=== PATIENT | female | born 1990 | race Caucasian/White ===

== ENCOUNTER → 2016-09-24 | Outpatient (CLI) | payer OTHER ==
[2016-09-24 12:25] LABS: BASO % 0.2 %; BASO ABS # 0.01 K/uL (0-0.2); COMPLETE YES; HEMATOCRIT 42.5 % (37-47); IG% 0.2 %; LYMPH % 34.1 %; LYMPH ABS # 1.85 K/uL (1.2-3.4); MEAN CELL VOLUME 91.2 fL (80-100); MEAN CORPUSCULAR HEMOGLOBIN 30.3 pg (25-34); MEAN CORPUSCULAR HGB CONC 33.2 g/dl (32-36); MEAN PLATELET VOLUME 10.9 fL (7.4-10.4); MONO % 6.8 %; NEUT % 55.7 %; PLATELET COUNT 237 K/uL (130-400); RED BLOOD COUNT 4.66 M/uL (4.2-5.4); WHITE BLOOD COUNT 5.42 K/uL (4.8-10.8)
[2016-09-24 13:00] LABS: ALT/SGPT 16 U/L (12-78); AST/SGOT 13 U/L (15-37); BLOOD UREA NITROGEN 10 mg/dl (7-18); BUN/CREATININE RATIO 14.2 (10-20); CALCIUM 8.2 mg/dl (8.5-10.1); CARBON DIOXIDE 25 mmol/L (21-32); CHLORIDE 112 mmol/L (98-107); CREATININE 0.68 mg/dl (0.60-1.20); GLUCOSE 75 mg/dl (70-99); POTASSIUM 4.2 mmol/L (3.5-5.1); SODIUM 145 mmol/L (136-145)
[2016-09-24 13:10] LABS: ALB/GLOB RATIO 1.2 (0.9-2); ALKALINE PHOSPHATASE 80 U/L (45-117); CHOLESTEROL 122 mg/dl (0-200); CHOLESTEROL/HDL RATIO 2.4; HDL CHOLESTEROL 51 mg/dl; LDL CHOLESTEROL CALCULATED 63 mg/dl; TRIGLYCERIDES 39 mg/dl (0-150); VERY LOW DENSITY LIPOPROT CALC 8 mg/dl
== END | disposition home or self-care (01) ==
LOC: C.LABPBG 09:03
PROVIDERS: ATTEND Neuromusculoskeletal Medicine & OMM
DX: Z00.00 Encounter for general adult medical examination without abnormal findings (principal)

== ENCOUNTER → 2017-08-05 | Outpatient (CLI) | payer OTHER | END | disposition home or self-care (01) | LOC: C.LABSPEC 17:42 | PROVIDERS: ATTEND Family Medicine | DX: Z01.419 Encounter for gynecological examination (general) (routine) without abnormal findings (principal); Z30.9 Encounter for contraceptive management, unspecified ==

== ENCOUNTER → 2017-08-05 | Outpatient (CLI) | payer OTHER | END | disposition home or self-care (01) | LOC: C.PAPS 18:17 | PROVIDERS: ATTEND Family Medicine | DX: Z01.419 Encounter for gynecological examination (general) (routine) without abnormal findings (principal); Z30.9 Encounter for contraceptive management, unspecified ==

== ENCOUNTER → 2017-08-06 | Outpatient (CLI) | payer OTHER | END | disposition home or self-care (01) | LOC: C.LABPBG 08:13 | PROVIDERS: ATTEND Family Medicine | DX: R30.0 Dysuria (principal) ==

== ENCOUNTER 2022-05-24 17:22 | Inpatient (IN) ==
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
[2022-05-24] MEDS ORDERED: ACETAMINOPHEN 500 MG TAB PO STA (18:06)
--- NOTE | 2022-05-24 18:55 | XRay Report ---
XR foot LT min 3V routine, XR knee LT 4V HISTORY: 31 years-old Female dorsal metatarsal acute pain of the left foot and the status post injur y COMPARISON: None TECHNIQUE: 3 views of the left foot with 4 views of the left knee FINDINGS: FOOT: Subtle acute nondisplaced fracture involves the medial base of the first metatarsal. Acute transverse fractures are noted involving the proximal metaphyseal aspects of the second, third and fourth metat arsals. Approximately 2 mm medial displacement of the third and fourth metatarsal fractures. Possible acute fractures of the second and third cuneiforms. Slight widening at the Lisfranc articulation, 3 mm. Moderate soft tissue swelling. Mild spurring of the calcaneus. KNEE: No acute fracture, dislocation or large joint effusion identified. Limited exam secondary to patient body habitus. IMPRESSION: 1. Acute fractures involving the bases of the first through fourth metatarsals with questioned fractu res of the second and third cuneiforms. 2. Slight widening of the midfoot is suspicious for an associated Lisfranc ligamentous injury. 3. No acute fracture or dislocation of the knee. ACT 112: Negative or not required by law. The above report was generated using voice recognition software. It may contain grammatical, syntax o r spelling errors. Electronically signed by: Ruel Ness M.D. 05/24/2022 6:52 PM
[2022-05-24 20:22] LABS: Basophils # (auto) 0.03 K/uL (0-0.2); Basophils % (auto) 0.4 %; Eosinophils # (auto) 0.15 K/uL (0-0.50); Eosinophils % (auto) 1.8 %; Hematocrit (blood only) 39.3 % (34.1-44.9); Immature Granulocytes # (auto) 0.04 K/uL (0.00-0.02); Immature Granulocytes % (auto) 0.5 %; Lymphocytes # (auto) 1.46 K/uL (1.2-3.4); Lymphocytes % (auto) 17.5 %; Mean Corpuscular Hgb Conc 33.1 g/dL (32.0-36.0); Mean Corpuscular Volume 90.6 fL (80.0-100.0); Mean Platelet Volume 10.1 fL (9.4-12.3); Monocytes # (auto) 0.36 K/uL (0.24-0.82); Monocytes % (auto) 4.3 %; Neutrophils % (auto) 75.5 %; Platelet Count 243 K/uL (130-400); RDW Coefficient of Variation 13.2 % (11.5-14.5); RDW Standard Deviation 43.4 fL (36.4-46.3); Red Blood Count 4.34 M/uL (3.93-5.22); White Blood Count 8.34 K/ul (4.8-10.8)
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
[2022-05-24 20:44] LABS: Albumin Globulin Ratio 1.3 (0.9-2); Albumin Level 3.8 gm/dl (3.4-5.0); BUN Creatinine Ratio 18.8 (10-20); Bilirubin,Total 0.7 mg/dl (0.2-1.0); Calcium 8.9 mg/dl (8.5-10.1); Creatinine Clr Calc Pharmacy 139.8 ml/min; Est GFR (African American) 112.3 ml/min; Est GFR (Non-African American) 96.9 ml/min; Potassium 3.4 mmol/L (3.5-5.1); Total Protein 6.8 gm/dl (6.0-8.3)
[2022-05-24] MEDS ORDERED: POTASSIUM CHLORIDE CRTAB 20 MEQ TABCR PO STA (20:47)
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
[2022-05-24] MEDS ORDERED: oxyCODONE HCL IR 5 MG TAB (IMMEDIATE RELEASE) PO PRN (22:43)
[2022-05-24] MEDS ORDERED: ONDANSETRON INJ 2 MG/ML 2 ML VIAL IV PRN (22:43)
[2022-05-24] MEDS ORDERED: RIZATRIPTAN BENZOATE 10 MG TAB PO PRN (22:43)
[2022-05-25] MEDS: oxyCODONE HCL IR 5 MG TAB (IMMEDIATE RELEASE) PO PRN ×3 (03:23→16:03)
[2022-05-25] MEDS: ACETAMINOPHEN 325 MG TAB PO PRN ×2 (07:14→22:37)
--- NOTE | 2022-05-25 07:15 | CT Scan Report ---
LEFT KNEE CT CT DOSE: 127.98 mGy.cm HISTORY: Fall anterolateral left knee pain,negative xray TECHNIQUE: Multiaxial CT images of the left knee were performed and reformatted in the sagittal and c oronal plane without the use of contrast. A dose lowering technique was utilized adhering to the irish [place]. COMPARISON: Left knee radiograph 05/24/2022. FINDINGS: No fracture or dislocation. Soft tissues are unremarkable. No knee effusion. IMPRESSION: No fracture or dislocation within the left knee. ACT 112: Negative or not required by law. Electronically signed by: Caden Harris M.D. 05/25/2022 7:13 AM
[2022-05-25 07:23] LABS: Basophils # (auto) 0.03 K/uL (0-0.2); Basophils % (auto) 0.5 %; Eosinophils # (auto) 0.15 K/uL (0-0.50); Eosinophils % (auto) 2.7 %; Hematocrit (blood only) 33.5 % (34.1-44.9); Immature Granulocytes # (auto) 0.03 K/uL (0.00-0.02); Immature Granulocytes % (auto) 0.5 %; Lymphocytes # (auto) 1.65 K/uL (1.2-3.4); Lymphocytes % (auto) 29.4 %; Mean Corpuscular Hemoglobin 29.7 pg (25.0-34.0); Mean Corpuscular Hgb Conc 32.8 g/dL (32.0-36.0); Mean Corpuscular Volume 90.5 fL (80.0-100.0); Mean Platelet Volume 10.3 fL (9.4-12.3); Monocytes # (auto) 0.42 K/uL (0.24-0.82); Monocytes % (auto) 7.5 %; Neutrophils # (auto) 3.34 K/uL (1.4-6.5); Neutrophils % (auto) 59.4 %; Platelet Count 212 K/uL (130-400); RDW Coefficient of Variation 13.2 % (11.5-14.5); RDW Standard Deviation 43.7 fL (36.4-46.3); White Blood Count 5.62 K/ul (4.8-10.8)
[2022-05-25 07:47] LABS: BUN Creatinine Ratio 18.6 (10-20); Calcium 8.4 mg/dl (8.5-10.1); Creatinine Clr Calc Pharmacy 158.9 ml/min; Est GFR (African American) 131.9 ml/min; Est GFR (Non-African American) 113.8 ml/min; Magnesium 1.9 mg/dl (1.7-2.4); Potassium 3.6 mmol/L (3.5-5.1)
[2022-05-25] MEDS: FLUTICASONE PROPIONATE NA SPR 16 GM BTL SCH (08:02)
[2022-05-25] MEDS: CETIRIZINE HCL 10 MG TABLET PO SCH (08:02)
[2022-05-25] MEDS: CITALOPRAM 40 MG TAB PO SCH (08:02)
[2022-05-25] MEDS: PANTOprazole 40 MG TAB PO SCH (08:02)
--- NOTE | 2022-05-25 08:26 | XRay Report ---
XR chest 1V portable HISTORY: pre-op COMPARISON: None. FINDINGS: The lungs are clear. Cardiac silhouette is normal in size. No pleural effusions. No pneumot horax. IMPRESSION: No acute process. ACT 112: Negative or not required by law. Electronically signed by: Caden Harris M.D. 05/25/2022 8:24 AM
--- NOTE | 2022-05-25 09:00 | CT Scan Report ---
CT foot LT wo con CLINICAL HISTORY: known fractures, surgical planning purposes TECHNIQUE: Multidetector row helical CT of the left foot was performed without intravenous contrast. Coronal and sagittal reformations were obtained. Automated dose lowering techniques and/or adjustment according to patient size were utilized for this examination. CT DOSE: 334.53 mGy.cm Comparison: Comparison is made to left foot radiographs 05/24/2022 FINDINGS: There are transverse fractures of the base of the second, third, and fourth metatarsals. The third me tatarsal fracture is displaced with the distal fragment approximately 3 mm inferior to the proximal f ragment. In addition, there are avulsion fractures of the base of the first metatarsal. The cuneiform bones are without acute fracture. The joint spaces are maintained. The soft tissues are unremarkable . IMPRESSION: Avulsion fractures at the base of the first metatarsal and transverse fractures of the second through fourth metatarsal. Findings are suspicious for Lisfranc injury, most obviously in the first intersp josé miguel, although no significant widening is noted. ACT 112: Negative or not required by law. Electronically signed by: Tato Lunsford M.D. 05/25/2022 8:58 AM
[2022-05-25] MEDS: HYDROmorphone INJ 0.5 MG/0.5 ML SYR IV PRN (10:53)
--- NOTE | 2022-05-25 15:14 | Anesthesiology Consultation ---
Date of Service May 25, 2022 Assessment & Plan Chart Review Chart Review: Acceptable Risk for Surgery Consults Requested none ASA ASA2 Proposed Anesthesia Anesthesia Type: General Risk / Benefits Reviewed With: PT / POA / Parent / Guardian, Accepts Plan and Informed Consent Obtained Additional Comments: ankle block per surgeon planned History Surgery Operation Date: 05/25/22 07:00 Proposed Procedures p Left Open Reduction Internal Fixation Foot - Joe Conner, DPM, MS Height/Weight Height: 5 ft 3 in Weight: 141.5 kg Allergies Allergy/AdvReac Type Severity Reaction Status Date / Time Sulfa (Sulfonamide AdvReac Severe vomiting Verified 05/24/22 20:24 Antibiotics) Medications Home Medications Medication Instructions Recorded Confirmed Last Taken aspirin 81 mg chewable tablet 81 mg PO DAILY 02/12/19 05/24/22 05/24/22 rizatriptan 10 mg tablet See Rx Instructions .Route 08/16/20 05/24/22 Unknown .COMPLEX #21 tabs cetirizine 10 mg tablet 10 mg PO DAILY #30 tabs 12/19/20 05/24/22 05/24/22 fluticasone propionate 50 2 spray intranasal DAILY #9.9 grams 05/20/21 05/24/22 05/24/22 mcg/actuation nasal spray,suspension (Flonase Allergy Relief) omeprazole 40 mg capsule,delayed 40 mg PO DAILY #30 caps 02/17/22 05/24/22 05/24/22 release citalopram 40 mg tablet 40 mg PO DAILY #90 tabs 03/30/22 05/24/22 05/24/22 compress.stocking,knee,reg,lrg #2 ea 05/13/22 05/13/22 Unknown furosemide 20 mg tablet (Lasix) 20 mg PO DAILY 05/24/22 05/24/22 05/24/22 Active Medications Generic Name Dose Route Start Last Admin Trade Name Freq PRN Reason Stop Dose Admin Acetaminophen 650 mg 05/24/22 22:43 05/25/22 07:14 Acetaminophen 325 Mg Tab PO 06/23/22 22:42 650 mg Q4H PRN Administration mild pain or fever Cetirizine HCl 10 mg 05/25/22 09:00 05/25/22 08:02 Cetirizine Hcl 10 Mg Tablet PO 06/24/22 08:59 10 mg DAILY INOCENCIA Administration Citalopram Hydrobromide 40 mg 05/25/22 09:00 05/25/22 08:02 Citalopram 40 Mg Tab PO 06/24/22 08:59 40 mg DAILY INOCENCIA Administration Fluticasone Propionate 2 sprays 05/25/22 09:00 05/25/22 08:02 Fluticasone Propionate Na Spr 16 Gm Btl NA 06/24/22 08:59 2 sprays DAILY INOCENCIA Administration Hydromorphone HCl 0.5 mg 05/25/22 10:45 05/25/22 10:53 Hydromorphone Inj 0.5 Mg/0.5 Ml Syr IV 06/08/22 10:44 0.5 mg Q6H PRN Administration moderate-severe pain Oxycodone HCl 10 mg 05/24/22 22:43 05/25/22 16:03 Oxycodone Hcl Ir 5 Mg Tab (Immediate Release) PO 06/07/22 22:42 10 mg Q4H PRN Administration SEVERE Pain (7,8,9,10) Pantoprazole Sodium 40 mg 05/25/22 09:00 05/25/22 08:02 Pantoprazole 40 Mg Tab PO 06/24/22 08:59 40 mg DAILY INOCENCIA Administration NPO Date Last Intake of Fluids: 05/24/22 Time Last Intake of Fluids: 23:00 Last Intake of Fluids Comment: 1 ice cream Date Last Intake of Solids: 05/24/22 Time Last Intake of Solids: 23:00 Past Medical History Medical History Chronic venous insufficiency Classic migraine with aura Depression GERD without esophagitis Hiatal hernia Lymphedema Moderate obstructive sleep apnea (01/2022) Seasonal allergies Superficial thrombophlebitis of leg Vitamin D deficiency Exercise / Class Metabolic Activity II 4-5 Yardwork/Stairs/Walk up hill Past Family History Family History Mother Depression Kidney disease Peripheral vascular disease Grandmother (Maternal) Lymphoma Thyroid disease Heart disease Kidney disease Denies family history of Ovarian cancer Prostate cancer Breast cancer Lung cancer Colorectal cancer Past Surgical History Surgical History Status post ablation of incompetent vein using laser (03/14/21) b/l mechanico chemical ablation GSV Past Anesthesia History No Hx of Anesthesia Complications and No Family Hx of Anesthesia Complications History of PONV No Hx of PONV and No Hx of Motion Sickness Social History Smoking Status: Never smoker Do You Dip or Chew Tobacco: No Hx Alcohol Use: No Hx Substance Use: No substance use type: does not use Physical Exam Vital Signs Last Vital Signs Temp 37 C 05/25/22 16:40 Pulse 75 05/25/22 16:40 Resp 18 05/25/22 16:40 BP 102/61 05/25/22 16:40 Pulse Ox 96 05/25/22 16:40 O2 Del Method 05/25/22 16:40 Constitutional + morbidly obese ENMT Mouth: + TMJ abnormality and + dentition abnormality (3 missing bottom teeth, 1 broken left lower front tooth) Thyromental Distance: > or= 3.5 Finger Breadths Mallampati Class: III Neck normal visual inspection and trachea midline; neck extension not limited Respiratory normal respiratory effort Auscultation: lungs clear to auscultation bilaterally Cardiovascular Rate/Rhythm: regular rate and regular rhythm Heart Sounds: no murmur Musculoskeletal Spine: normal cervical ROM Extremities: full ROM of extremities Neurologic moves all extremities Psychiatric Orientation: alert and oriented x 3 Testing Laboratory Results 05/25/22 07:06 05/25/22 07:06 05/25/22 15:30 Urine Test Pending urine hcg pending
[2022-05-25] MEDS ORDERED: ONDANSETRON INJ 2 MG/ML 2 ML VIAL ONE (16:21)
[2022-05-25] MEDS ORDERED: fentaNYL citrate 100 MCG/2 ML VIAL ONE ×2 (16:21→18:22)
[2022-05-25] MEDS ORDERED: DEXAMETHASONE SOD INJ 4 MG/ML VIAL ONE (16:21)
[2022-05-25] MEDS ORDERED: PROPOFOL IV EMULSION 10 MG/ML 20 ML VIAL IV ONE ×2 (16:21→17:42)
[2022-05-25] MEDS ORDERED: MIDAZOLAM HCL 1 MG/ML 2ML VIAL ONE (16:21)
[2022-05-25] MEDS ORDERED: LIDOCAINE 2% MPF LOCAL 5 ML VIAL INFIL ONE (16:22)
[2022-05-25] MEDS ORDERED: ceFAZolin 3000MG/72.5 ML BAG IV ONE (17:04)
[2022-05-25] MEDS ORDERED: ALBUTEROL 0.083% NEBU SOLN 3 ML VIAL INH PRN (17:06)
[2022-05-25] MEDS ORDERED: DEXAMETHASONE SOD INJ 4 MG/ML VIAL IV PRN (17:06)
[2022-05-25] MEDS ORDERED: ATROPINE SULFATE 0.1 MG/ML 10ML SYR IV PRN (17:06)
[2022-05-25] MEDS ORDERED: fentaNYL citrate 100 MCG/2 ML VIAL IV PRN (17:06)
[2022-05-25] MEDS ORDERED: ePHEDrine sulfate 50 MG/ML AMP IV PRN (17:06)
[2022-05-25] MEDS ORDERED: MoRPHine SULFATE 10 MG/ML CARP/VIAL IV PRN (17:06)
[2022-05-25] MEDS ORDERED: ONDANSETRON INJ 2 MG/ML 2 ML VIAL IV PRN (17:06)
[2022-05-25] MEDS ORDERED: MEPERIDINE HCL 25 MG/ML CARP/VIAL IV PRN (17:06)
[2022-05-25 17:08] LABS: Pregnancy Test, Urine Negative (Negative)
[2022-05-25] MEDS ORDERED: SUCCINYLCHOLINE 100MG/5ML SYR IV ONE (17:09)
[2022-05-25] MEDS ORDERED: SUGAMMADEX SODIUM 200 MG/2 ML VIAL IV ONE (17:10)
--- NOTE | 2022-05-25 17:17 | History & Physical Bridge Note ---
Date of Service May 25, 2022 History & Physical Bridge Note I have examined the patient, reviewed the History & Physical and in the interval since the performance of the History & Physical I have noted the following changes of clinical significance: no changes noted
[2022-05-25] MEDS ORDERED: GLYCOPYRROLATE 0.2 MG/ML VIAL ONE (18:06)
--- NOTE | 2022-05-25 18:18 | Electrocardiogram Report ---
Test Reason : Blood Pressure : / mmHG Vent. Rate : 072 BPM Atrial Rate : 072 BPM P-R Int : 122 ms QRS Dur : 078 ms QT Int : 416 ms P-R-T Axes : 036 041 007 degrees QTc Int : 455 ms Poor data quality, interpretation may be adversely affected Normal sinus rhythm Normal ECG When compared with ECG of 13-AUG-2020 11:03, No significant change was found Confirmed by Angel Oneal ([id number]) on 05/25/2022 6:18:36 PM Referred By: REFERRED SELF Confirmed By:Oniel Oneal
[2022-05-25] MEDS ORDERED: MoRPHine SULFATE 2 MG/ML CARP ONE ×2 (19:11→19:15)
--- NOTE | 2022-05-25 20:11 | Post Operative Brief Note ---
Immediate Post Op Note v1 Date of Surgery May 25, 2022 Pre & Post Diagnosis Operation Date: 05/25/22 07:00 Pre-Op Diagnosis: LEFT FOOT FRACTURE Post-Op Diagnosis: LEFT FOOT FRACTURE I identified the patient and participated in the time-out.: Yes Procedure Operation Date: 05/25/22 07:00 Actual Procedures p Left Open Reduction Internal Fixation Foot(Left) - Joe Conner DPM, MS Surgeon Joe Conner DPM, MS Leaf Conditioner None Estimated Blood Loss 5 Findings Consistent with Post-Op Diagnosis multiple fractures midfoot, unstable lisfranc complex
--- NOTE | 2022-05-25 20:16 | Fluoroscopy Report ---
FL foot LT 2V CLINICAL HISTORY: ORIF LEFT FOOT COMPARISON STUDY: Left radiographs and CT of the left foot May 24, 2022. FLUOROSCOPY TIME: 43 seconds. FLUOROSCOPIC IMAGES: 2 FINDINGS: Fluoroscopy was provided during open reduction and internal fixation of the Lisfranc fractu re/dislocation of the left foot. Fracture alignment has improved. Hardware is intact. Fixation of the second, third and fourth metatarsal fractures is noted. A screw extends from the medial cuneiform to the base of the second metatarsal. IMPRESSION: Fluoroscopy provided during open reduction and internal fixation of the left foot Lisf[place] nc fracture/dislocation. ACT 112: Negative or not required by law. Electronically signed by: Tigre Gorman M.D. 05/25/2022 8:14 PM
--- NOTE | 2022-05-25 20:30 | Hospitalist Progress Note ---
Date of Service May 25, 2022 Assessment & Plan (1) Foot fracture, left: Plan: - s/p fall at work, severe left foot/ankle pain, not able to bear weight. - XR: acute fractures involving the base of the first through fourth metatarsals with question fracture of the second and third cuneiforms with slight widening of the midfoot suspicious for an associated Lisfranc ligamentous injury. There is no acute fracture or dislocation of the knee. - CT of foot, knee ordered per podiatry request with similar findings and evidence of Lis Franc injury -now s/p ORIF with Dr. Conner/Podiatry on 05/25 - Tylenol, oxycodone for pain control. Added IV dilaudid prn breakthrough pain -assess with PT after procedure and hopeful to dc to home tomorrow (2) Chronic venous insufficiency: Plan: - s/p GSV ablation in 2020, with recurrent b/l LE edema,12 lb weight gain since beginning of April. -hold home lasix as was NPO all day for surgery -f/u outpt (3) Intertrigo: Plan: - Patient with concern for buttocks rash x3 days. No fever, chills. - Appears like intertrigo. -may need to add antifungal powder (4) Depression: Plan: - Continue citalopram 40 mg daily. (5) Classic migraine with aura: Plan: - Continue rizatriptan prn (6) GERD without esophagitis: Plan: - Continue PPI (7) Moderate obstructive sleep apnea: Plan: - Not at goal, noncompliant with CPAP. - Weight loss encouraged. Plan - continued stay med/surg. - SCDS for VTE ppx. - Full Code. Admission and Anticipated Discharge Date Admission Date: May 24, 2022 Subjective Pt seen after returning from OR. Was drowsy from anesthesia. Denies CP, SOB, pain in ankle/foot. Review of Systems Review of Systems: All systems reviewed & are unremarkable except as noted in HPI & below Physical Exam Constitutional: WD/WN, vitals as above Eyes: + eyelid abnormality (ptosis) and + anicteric sclerae Neck: trachea midline, no thyromegaly Respiratory: normal respiratory effort, lungs clear to auscultation Cardiovascular: Rate/Rhythm: regular rate and regular rhythm Heart Sounds: no murmur Musculoskeletal: Extremities: + extremities abnormal to inspection (left foot/ankle in dressing and splint) Skin: + rash (erythema of all toes,dry scaly skin,thick yellow toenails ) Neurologic: drowsy Results & Data Results & Data ([facility]) Vital Signs (Past 12 Hours) Vital Signs Temp Pulse Resp BP Pulse Ox O2 Del Method 05/25/22 16:40 37 C 75 18 102/61 96 Room Air 05/25/22 15:44 36.8 C 66 18 122/80 96 Room Air Laboratory Results 05/25/22 07:06 05/25/22 07:06 PG Care Time/CCT Total # of Minutes Spent Total Time Spent with Patient: Total time spent is greater than 50% in coordination of care (as documented) at patient's floor/unit and/or counseling patient: Coding Level of Care Code 85642 SUB INP/OBS CARE 2/35MIN Diagnoses Foot fracture, left S92.902A Chronic venous insufficiency I87.2 Intertrigo L30.4 Depression F32.9 Classic migraine with aura G43.109 GERD without esophagitis K21.9 Moderate obstructive sleep apnea G47.33
--- NOTE | 2022-05-25 20:58 | Anesthesiology Progress Note ---
Date of Service May 25, 2022 Anesthesia Post Procedure Vital Signs Vital Signs: Temp Pulse Pulse Resp BP Pulse Ox O2 Del Method 05/25/22 20:40 93 H 20 130/76 96 Oxymask 05/25/22 20:30 93 H 23 134/73 95 Oxymask 05/25/22 20:20 98 H 23 128/80 94 Oxymask 05/25/22 20:50 36.9 C 101 H 23 120/79 96 Nasal Cannula 05/25/22 20:14 36.4 C L 104 H 19 120/85 97 Oxymask 05/25/22 16:40 37 C 75 18 102/61 96 Room Air 05/25/22 15:44 36.8 C 66 18 122/80 96 Room Air 05/25/22 07:19 36.5 C 64 16 105/71 97 Room Air 05/24/22 22:30 37.1 C 72 18 122/79 98 Room Air 05/24/22 21:25 71 16 116/68 96 Room Air O2 Flow Rate 05/25/22 20:40 4 05/25/22 20:30 4 05/25/22 20:20 4 05/25/22 20:50 2 05/25/22 20:14 6 05/25/22 16:40 05/25/22 15:44 05/25/22 07:19 05/24/22 22:30 05/24/22 21:25 Pain Intensity Left Foot: Pain Intensity: 10 Transfer of Care Handoff Completed per policy Notes Mental Status: alert / awake / arousable Patient Amnestic to Procedure: Yes Nausea / Vomiting: adequately controlled Pain: adequately controlled Airway Patency, RR, SpO2: stable & adequate BP & HR: stable & adequate Hydration State: stable & adequate Anesthetic Complications: no major complications apparent and Pt Satisfied with anesthetic care
--- NOTE | 2022-05-25 21:39 | Operative Report ---
Post Operative Report Pre & Post Diagnosis Operation Date: 05/25/22 07:00 Pre-Op Diagnosis: LEFT FOOT FRACTURE Post-Op Diagnosis: LEFT FOOT FRACTURE I identified the patient and participated in the time-out.: Yes Procedure Operation Date: 05/25/22 07:00 Actual Procedures p Left Open Reduction Internal Fixation Foot(Left) - Joe Conner DPM, MS Surgeon Joe Conner DPM, MS Transition Mgr None Estimated Blood Loss 5 Findings Consistent with Post-Op Diagnosis Foot fractures with lisfranc instability Specimens None Description of Procedure History of present illness: Patient is a 31-year-old female who presented to [facility] ED after sustaining multiple foot fractures and associated Lisfranc injury. Patient is seen for surgical care including open reduction internal fixation of left foot second, third, fourth metatarsal fractures and Lisfranc reduction. Discussed procedure in detail as well as postoperative recovery. All potential risks, benefits, complications, alternatives, rehab, potential for incomplete relief of symptoms, need for further surgery, DVT, PE, , persistent pain, swelling, scarring, weakness, neurovascular, wound complications and potential for amputations were discussed with patient. Unwanted outcomes such as, but not limited to were reviewed including under correction, overcorrection, return of deformity, infection. All questions were answered. Patient has decided to proceed with procedure as indicated. Preoperative diagnosis: 1.) Left foot second, third, and fourth metatarsal fracture 2.) Lisfranc instability with associated fracture Postoperative diagnosis: Same Name of operation: 1.) Open reduction internal fixation left foot second, third, and fourth metatarsal fracture 2.) Left foot Lisfranc open reduction internal fixation Surgeon: Dr. Conner Transition Mgr: None Anesthesia: Local with monitored anesthesia care Estimated blood loss: 5mm Procedure in detail: Under mild sedation the patient was brought in the operating room placed on the operating table in supine position. A Pneumatic ankle tourniquet was then placed about the patient's left ankle. Following IV sedation, local anesthesia was obtained about the left lateral ray utilizing 10 cc of a 1:1 mixture of 1% lidocaine plain and 0.5% Marcaine plain. The foot was then prepped, scrubbed, and draped, in the usual aseptic manner. An Esmarch bandage utilized examining the patient's left foot and the pneumatic ankle tourniquet was inflated. Utilizing a sharp, sterile, 15 blade, an incision was placed over the Patient's left second and third metatarsals. The incision was deepened through subcutaneous tissue using sharp blunt dissection. Care was taken to identify and retract all vital neurovascular structures bleeders. All bleeders were ligated as necessary. The fracture ends were identified and freshened with curette. At this time utilizing standard AO principles a 15mm Synthes continuous compression staple was placed over the fractures of the second and third metatarsals. C-arm was utilized to visualize correction and placement of hardware. Next utilizing a sharp, sterile, 15 blade, an incision was placed over the Patient's left fourth metatarsal. The incision was deepened through subcutaneous tissue using sharp blunt dissection. Care was taken to identify and retract all vital neurovascular structures bleeders. All bleeders were ligated as necessary. The fracture ends were identified and freshened with curette. At this time utilizing standard AO principles a 15mm Synthes continuous compression staple was placed over the fourth metatarsal fracture. C-arm was again utilized to visualize correction and placement of hardware. The Lisfranc complex was then challenged. Significant widening and displacement was observed utilizing mini C-arm. A decision was made to reduce and fixate the Lisfranc joint due to then extent of the Lisfranc injury. At this time a Synthes 4.0mm 36mm short thread screw was placed from the medial cuneiform into the base of the second metatarsal. Again intra operative c-arm was utilized to confirm accurate placement as well as the first ray was evaluated and no instability was noted when challenged. Correction of deformity was assessed and noted to be excellent utilizing intraoperative C arm. Copious amounts of sterile normal saline was utilized to flush the wound. The deep structures were coapted utilizing 3-0 PDS and the skin was reapproximated coapted utilizing horizontal suture technique with 4-0 nylon. Upon completion of the procedure a post operative block consisting of 20mL of 0.5% Marcaine plain was infiltrated around the surgical site. The incision was dressed with Betadine soaked Adaptic followed by sterile compressive dressing consisting of 4 x 4's and Tanvir. The pneumatic ankle tourniquet was deflated and a prompt hyperemic response was noted to all digits of the left foot. Patient tolerated the procedure and anesthesia well. She was transferred to recovery room with vital signs stable and vascular status intact all toes of the left foot. Following a period of Postoperative monitoring the patient will be re-admitted to the floor resuming all pre-operative orders. Please contact Dr. Conner for all postoperative care if any problems arise. I attest to the content of the Intraoperative Record and any orders documented therein. Any exceptions are noted below.
[2022-05-26] MEDS: CITALOPRAM 40 MG TAB PO SCH (07:49)
[2022-05-26] MEDS: PANTOprazole 40 MG TAB PO SCH (07:49)
[2022-05-26] MEDS: FLUTICASONE PROPIONATE NA SPR 16 GM BTL SCH (07:49)
[2022-05-26] MEDS: CETIRIZINE HCL 10 MG TABLET PO SCH (07:49)
[2022-05-26] MEDS: oxyCODONE HCL IR 5 MG TAB (IMMEDIATE RELEASE) PO PRN ×2 (07:50→21:39)
[2022-05-26 12:38] LABS: Basophils # (auto) 0.02 K/uL (0-0.2); Basophils % (auto) 0.2 %; Eosinophils # (auto) 0.02 K/uL (0-0.50); Eosinophils % (auto) 0.2 %; Hematocrit (blood only) 40.8 % (34.1-44.9); Hemoglobin 13.6 g/dl (12.0-16.0); Immature Granulocytes # (auto) 0.04 K/uL (0.00-0.02); Immature Granulocytes % (auto) 0.4 %; Lymphocytes # (auto) 1.52 K/uL (1.2-3.4); Lymphocytes % (auto) 16.7 %; Mean Corpuscular Hemoglobin 29.6 pg (25.0-34.0); Mean Corpuscular Hgb Conc 33.3 g/dL (32.0-36.0); Mean Corpuscular Volume 88.7 fL (80.0-100.0); Mean Platelet Volume 10.1 fL (9.4-12.3); Monocytes # (auto) 0.49 K/uL (0.24-0.82); Monocytes % (auto) 5.4 %; Neutrophils # (auto) 7.03 K/uL (1.4-6.5); Neutrophils % (auto) 77.1 %; Platelet Count 280 K/uL (130-400); RDW Standard Deviation 42.5 fL (36.4-46.3); White Blood Count 9.12 K/ul (4.8-10.8)
[2022-05-26 12:52] LABS: BUN Creatinine Ratio 13.1 (10-20); Calcium 9.2 mg/dl (8.5-10.1); Creatinine Clr Calc Pharmacy 133.1 ml/min; Est GFR (African American) 105.8 ml/min; Est GFR (Non-African American) 91.3 ml/min; Potassium 3.9 mmol/L (3.5-5.1)
--- NOTE | 2022-05-26 13:06 | Hospitalist Progress Note ---
Date of Service May 26, 2022 Assessment & Plan (1) Foot fracture, left: Plan: - s/p fall at work, severe left foot/ankle pain, not able to bear weight. - XR: acute fractures involving the base of the first through fourth metatarsals with question fracture of the second and third cuneiforms with slight widening of the midfoot suspicious for an associated Lisfranc ligamentous injury. There is no acute fracture or dislocation of the knee. - CT of foot, knee ordered per podiatry request with similar findings and evidence of Lis Franc injury -now s/p ORIF with Dr. Conner/Podiatry on 05/25 - Tylenol, oxycodone for pain control. IV dilaudid prn breakthrough pain -assess with PT-recommend rehab and she is agreeable NWB to left foot f/u with Podiatry in 2 weeks (2) Chronic venous insufficiency: Plan: - s/p GSV ablation in 2020, with recurrent b/l LE edema,12 lb weight gain since beginning of April. -hold home lasix -f/u outpt (3) Intertrigo: Plan: - Patient with concern for buttocks rash x3 days. No fever, chills. - Appears like intertrigo. -may need to add antifungal powder (4) Depression: Plan: - Continue citalopram 40 mg daily. (5) Classic migraine with aura: Plan: - Continue rizatriptan prn (6) GERD without esophagitis: Plan: - Continue PPI (7) Moderate obstructive sleep apnea: Plan: - Not at goal, noncompliant with CPAP. - Weight loss encouraged. Plan - continued stay med/surg while awaiting SNF placement-medically stable for discharge - SCDS for VTE ppx. - Full Code. Admission and Anticipated Discharge Date Admission Date: May 24, 2022 Subjective NUmbness in left foot, very weak and unsteady on feet with PT. No CP, SOB, nausea. Otherwise feels well. Require straight cath pf bladder x 2 then able to urinate on own after that Review of Systems Review of Systems: All systems reviewed & are unremarkable except as noted in HPI & below Physical Exam Constitutional: WD/WN, vitals as above Eyes: + eyelid abnormality (ptosis) and + anicteric sclerae Neck: trachea midline, no thyromegaly Respiratory: normal respiratory effort, lungs clear to auscultation Cardiovascular: Rate/Rhythm: regular rate and regular rhythm Heart Sounds: no murmur Musculoskeletal: Extremities: + extremities abnormal to inspection (left foot/ankle in dressing and splint) Skin: + rash (erythema of all toes,dry scaly skin,thick yellow toenails ) Psychiatric: Orientation: alert, oriented x 3 and cooperative Results & Data Results & Data ([facility]) Vital Signs (Past 12 Hours) Vital Signs Temp Pulse Resp BP Pulse Ox O2 Del Method O2 Flow Rate 05/26/22 11:17 71 14 95/55 L 94 Room Air 05/26/22 08:19 37.0 C 71 16 103/69 96 Nasal Cannula 2 05/26/22 03:11 36.5 C 78 16 105/61 94 Nasal Cannula 1 Laboratory Results labs reviewed PG Care Time/CCT Total # of Minutes Spent Total Time Spent with Patient: Total time spent is greater than 50% in coordination of care (as documented) at patient's floor/unit and/or counseling patient: Coding Level of Care Code 92181 SUB INP/OBS CARE 25MIN Diagnoses Foot fracture, left S92.902A Chronic venous insufficiency I87.2 Intertrigo L30.4 Depression F32.9 Classic migraine with aura G43.109 GERD without esophagitis K21.9 Moderate obstructive sleep apnea G47.33
--- NOTE | 2022-05-26 19:55 | Orthopedic Progress Note ---
Date of Service May 26, 2022 Assessment & Plan (1) Multiple closed fractures of metatarsal bone of left foot: Plan: Patient seen and evaluated. Patient to keep dressing clean, dry, and intact. Patient to remain non weight bearing to left foot. Patient will follow up in office between 1-2 weeks upon discharge I will continue to follow while Patient remains in house. (2) Foot fracture, left: Admission and Anticipated Discharge Date Admission Date: May 24, 2022 Subjective Patient seen at bedside resting comfortably. Patient status post day #1 ORIF left foot second, third, fourth metatarsal fracture, Lisfranc dislocation. Patient has not complaints. Review of Systems Review of Systems: All systems reviewed & are unremarkable except as noted in HPI & below Physical Exam Constitutional: WD/WN, vitals as above Skin: Dressing clean, dry, and intact. Results & Data ([facility]) Vital Signs (Past 12 Hours) Vital Signs Temp Pulse Resp BP Pulse Ox O2 Del Method O2 Flow Rate 05/26/22 19:15 Room Air 05/26/22 14:50 37.0 C 84 17 109/67 97 Room Air 05/26/22 11:17 71 14 95/55 L 94 Room Air 05/26/22 08:19 37.0 C 71 16 103/69 96 Nasal Cannula 2 Diagnostic Findings CLINICAL HISTORY: ORIF LEFT FOOT COMPARISON STUDY: Left radiographs and CT of the left foot May 24, 2022. FLUOROSCOPY TIME: 43 seconds. FLUOROSCOPIC IMAGES: 2 FINDINGS: Fluoroscopy was provided during open reduction and internal fixation of the Lisfranc fracture/dislocation of the left foot. Fracture alignment has improved. Hardware is intact. Fixation of the second, third and fourth meta tarsal fractures is noted. A screw extends from the medial cuneiform to the base of the second metatarsal. IMPRESSION: Fluoroscopy provided during open reduction and internal fixation of the left foot Lisfranc fracture/dislocation. ACT 112: Negative or not required by law. Electronically signed by: Tigre Gorman M.D. 05/25/2022 8:14 PM (1) Multiple closed fractures of metatarsal bone of left foot Encounter type: initial encounter Qualified Code(s): S92.302A - Fracture of unspecified metatarsal bone(s), left foot, initial encounter for closed fracture
[2022-05-27] MEDS: HYDROmorphone INJ 0.5 MG/0.5 ML SYR IV PRN ×4 (00:33→22:51)
[2022-05-27] MEDS: oxyCODONE HCL IR 5 MG TAB (IMMEDIATE RELEASE) PO PRN ×4 (03:50→19:15)
[2022-05-27] MEDS: PANTOprazole 40 MG TAB PO SCH (07:54)
[2022-05-27] MEDS: CITALOPRAM 40 MG TAB PO SCH (07:54)
[2022-05-27] MEDS: CETIRIZINE HCL 10 MG TABLET PO SCH (07:54)
[2022-05-27] MEDS: FLUTICASONE PROPIONATE NA SPR 16 GM BTL SCH (07:54)
--- NOTE | 2022-05-27 15:20 | Orthopedic Progress Note ---
Date of Service May 27, 2022 Assessment & Plan (1) Multiple closed fractures of metatarsal bone of left foot: Plan: Patient seen and evaluated. Dry, sterile, dressing change with out incident. Patient to remain non weight bearing to left foot. Patient will follow up in office between 1-2 weeks upon discharge I will continue to follow while Patient remains in house. (2) Foot fracture, left: Admission and Anticipated Discharge Date Admission Date: May 24, 2022 Subjective Patient seen at bedside with no complaints. She is status post Day #2 lisfranc repair, ORIF 2, 3, 4 metatarsals. Review of Systems Review of Systems: All systems reviewed & are unremarkable except as noted in HPI & below Physical Exam Constitutional: WD/WN, vitals as above Respiratory: normal respiratory effort Cardiovascular: Rate/Rhythm: regular rate and regular rhythm Skin: Skin is well co-apted. Sutures intact. Texture, turgor, temperature wnl. Psychiatric: A+Ox3, euthymic affect Results & Data ([facility]) Vital Signs (Past 12 Hours) Vital Signs Temp Pulse Resp BP Pulse Ox O2 Del Method 05/27/22 07:36 36.4 C L 73 16 107/73 94 Room Air (1) Multiple closed fractures of metatarsal bone of left foot Encounter type: initial encounter Qualified Code(s): S92.302A - Fracture of unspecified metatarsal bone(s), left foot, initial encounter for closed fracture
[2022-05-27] MEDS: ACETAMINOPHEN 325 MG TAB PO PRN (16:20)
[2022-05-27] MEDS ORDERED: POLYETHYLENE (MIRALAX) 17 GM PACK PO PRN (16:59)
--- NOTE | 2022-05-27 17:01 | Hospitalist Progress Note ---
Date of Service May 27, 2022 Assessment & Plan (1) Foot fracture, left: Plan: - s/p fall at work, severe left foot/ankle pain, not able to bear weight. - XR: acute fractures involving the base of the first through fourth metatarsals with question fracture of the second and third cuneiforms with slight widening of the midfoot suspicious for an associated Lisfranc ligamentous injury. There is no acute fracture or dislocation of the knee. - CT of foot, knee ordered per podiatry request with similar findings and evidence of Lis Franc injury -now s/p ORIF with Dr. Conner/Podiatry on 05/25 -having severe post-op pain -post op labs normal -continue Tylenol, oxycodone for pain control. IV dilaudid prn breakthrough pain -assess with PT-recommend rehab and she is agreeable -remain NWB to left foot -f/u with Podiatry in 2 weeks (2) Constipation: Plan: Severe, chronic. Reports she typically moves her bowels only once a month and last BM 05/23 Advised that opioids will make this worse-advised docusate and senna but she says she will not take them ordered anyway in case she changes her mind along with prn Miralax -advised outpt GI follow up (3) Intertrigo: Plan: - intertrigo in gluteal cleft-seen by Wound care and using pericare type barrier cream (4) Depression: Plan: - Continue citalopram 40 mg daily. (5) Classic migraine with aura: Plan: - Continue rizatriptan prn (6) GERD without esophagitis: Plan: - Continue PPI (7) Moderate obstructive sleep apnea: Plan: - Not at goal, noncompliant with CPAP. - Weight loss encouraged. (8) Chronic venous insufficiency: Plan: - s/p GSV ablation in 2020, with recurrent b/l LE edema,12 lb weight gain since beginning of April. -hold home lasix -f/u outpt Plan - continued stay med/surg while awaiting SNF placement-medically stable for discharge - SCDS for VTE ppx. - Full Code. Admission and Anticipated Discharge Date Admission Date: May 24, 2022 Subjective Pt reports having severe pain in left foot today. Needing IV dilaudid as po oxycodone not helping much. Is eating. Reports last BM was 05/23 and that she only moves her bowels once a month. She refuses to take a laxative and says she has never had a GI workup for severe constipation. Review of Systems Review of Systems: All systems reviewed & are unremarkable except as noted in HPI & below Physical Exam Constitutional: WD/WN, vitals as above + morbidly obese Eyes: + eyelid abnormality (ptosis) and + anicteric sclerae Neck: trachea midline, no thyromegaly Respiratory: normal respiratory effort, lungs clear to auscultation Cardiovascular: Rate/Rhythm: regular rate and regular rhythm Heart Sounds: no murmur Gastrointestinal (Abdomen): normal bowel sounds, soft, nontender, no hepatosplenomegaly Musculoskeletal: Extremities: + extremities abnormal to inspection (left foot/ankle in dressing ) Skin: + rash (erythema of all toes,dry scaly skin,thick yellow toenails ) Psychiatric: Orientation: alert, oriented x 3 and cooperative Results & Data Results & Data ([facility]) Vital Signs (Past 12 Hours) Vital Signs Temp Pulse Pulse Resp BP Pulse Ox O2 Del Method 05/27/22 16:00 36.6 C 91 H 16 111/75 97 Room Air 05/27/22 07:36 36.4 C L 73 16 107/73 94 Room Air PG Care Time/CCT Total # of Minutes Spent Total Time Spent with Patient: Total time spent is greater than 50% in coordination of care (as documented) at patient's floor/unit and/or counseling patient: Coding Level of Care Code 75814 SUB INP/OBS CARE 05/27MIN Diagnoses Foot fracture, left S92.902A Constipation K59.00 Intertrigo L30.4 Depression F32.9 Classic migraine with aura G43.109 GERD without esophagitis K21.9 Moderate obstructive sleep apnea G47.33 Chronic venous insufficiency I87.2
[2022-05-27] MEDS: DOCUSATE SODIUM 100 MG CAP PO SCH (17:14)
[2022-05-27] MEDS ORDERED: ENOXAPARIN INJ 40 MG/0.4 ML SYR SQ SCH (18:00)
[2022-05-28] MEDS: oxyCODONE HCL IR 5 MG TAB (IMMEDIATE RELEASE) PO PRN ×2 (04:35→13:50)
[2022-05-28] MEDS ORDERED: SENNA 8.6 MG TAB PO SCH (09:00)
[2022-05-28] MEDS: FLUTICASONE PROPIONATE NA SPR 16 GM BTL SCH (09:14)
[2022-05-28] MEDS: PANTOprazole 40 MG TAB PO SCH (09:14)
[2022-05-28] MEDS: DOCUSATE SODIUM 100 MG CAP PO SCH (09:14)
[2022-05-28] MEDS: CITALOPRAM 40 MG TAB PO SCH (09:14)
[2022-05-28] MEDS: CETIRIZINE HCL 10 MG TABLET PO SCH (09:14)
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
== END 2022-05-28 15:49 | disposition home health service (06) | DRG 504 ==
LOC: ED 17:22 → 3N 20:38 → SUATTDRO 20:38 → 3N 22:31